=== PATIENT | male | born 1945 | race Caucasian/White ===

== ENCOUNTER 2023-07-22 09:49 | Outpatient (CLI) | payer OTHER | END 2023-07-22 20:53 | disposition home or self-care (01) | LOC: SRD 09:49 | PROVIDERS: ATTEND Internal Medicine Gastroenterology | DX: K31.89 Other diseases of stomach and duodenum (principal); R13.10 Dysphagia, unspecified; R05.9 Cough, unspecified | CPT/HCPCS: 74220-TC ==